=== PATIENT | female | born 1955 | race American Indian/Alaskan Native ===

== ENCOUNTER 2017-06-08 08:36 | Day surgery (SDC) | payer BC, OTHER ==
[2017-06-08] MEDS ORDERED: NACL 0.9% 1000 ML 1,000 ML IV SCH (10:00)
--- NOTE | 2017-06-08 10:59 | Anesthesia Consultation ---
Anesthesia Consult and Med Hx Date of service: 06/08/17 - Airway Anesthetic Teeth Evaluation: Good ROM Head & Neck: Adequate Mental/Hyoid Distance: Adequate Mallampati Class: Class III Intubation Access Assessment: Possibly Difficult - Pre-Operative Health Status ASA Pre-Surgery Classification: ASA3 Proposed Anesthetic Plan: MAC - Pulmonary Hx Smoking: No Hx Asthma: No COPD: No Hx Pneumonia: No - Cardiovascular System Hx Hypertension: Yes Hx Coronary Artery Disease: No (cardiomyopathy EF-40%) Hx Cardia Arrhythmia: Yes (atrial fibrilation) Hx Heart Murmur: Yes Hx Peripheral Vascular Disease: Yes - Central Nervous System Hx Psychiatric Problems: No - Endocrine Hx End Stage Renal Disease: No Hx Non-Insulin Dependent Diabetes: Yes - Other Systems Hx Cancer: No Hx Obesity: Yes (BMI 39.2)
[2017-06-08] MEDS ORDERED: HURRICAINE ONE 20% TOPICAL SPRAY MM NR (11:00)
--- NOTE | 2017-06-08 11:00 | Anesthesia Day of Surgery ---
Anesthesia Day of Surgery - Day of Surgery Patient Examined: Yes Patient H&P Reviewed: Yes Patient is NPO: Yes
[2017-06-08 11:01] LABS: Basophils % (Auto) 0.5 % (0.0-1.8); Eosinophils % (Auto) 3.3 % (0.0-4.3); Hematocrit 36.5 % (30.3-42.9); Mean Corpuscular HGB Conc 33 % (30-34); Mean Corpuscular Hemoglobin 28 pg (28-32); Mean Corpuscular Volume 86 fl (79-97); Platelet Count 183 K/mm3 (140-440); Red Blood Count 4.23 M/mm3 (3.65-5.03); White Blood Count 3.8 K/mm3 (4.5-11.0)
[2017-06-08 11:03] LABS: INR 1.83 (0.87-1.13)
[2017-06-08 11:04] LABS: Partial Thromboplastin Time 35.8 Sec. (24.2-36.6)
[2017-06-08] MEDS ORDERED: VERSED ONE (11:16)
[2017-06-08] MEDS ORDERED: DIPRIVAN 10 MG/ML IV ONE ×2 (11:16)
[2017-06-08 11:37] LABS: Anion Gap 18 mmol/L; BUN/Creatinine Ratio 12.85; Blood Urea Nitrogen 9 mg/dL (7-17); Calcium 9.7 mg/dL (8.4-10.2); Carbon Dioxide 28 mmol/L (22-30); Chloride 101.1 mmol/L (98-107); Glucose 101 mg/dL (65-100); Potassium 3.7 mmol/L (3.6-5.0); Sodium 143 mmol/L (137-145)
--- NOTE | 2017-06-08 12:30 | Short Stay Summary ---
Short Stay Documentation Date of service: 06/08/17 - History H&P: obtained from office - Allergies and Medications Current Medications: Allergies No Known Allergies Allergy (Unverified 09/17/13 14:34) Home Medications Medication Instructions Recorded Confirmed Last Taken Type Atorvastatin (Nf) [Lipitor] 10 mg PO QHS 09/17/13 06/08/17 06/07/17 History Metformin HCl [Glumetza] 1,000 mg PO BID 09/17/13 06/08/17 06/08/17 History Diltiazem Cd [Cardizem Cd] 240 mg PO QDAY #30 cap NS 09/25/13 06/08/17 06/08/17 Rx Furosemide [Lasix] 20 mg PO DAILY #30 tablet 09/25/13 06/08/17 06/08/17 Rx Doxazosin Mesylate [Cardura] 2 mg PO BID 06/08/17 06/08/17 06/08/17 History Rivaroxaban [Xarelto] 10 mg PO DAILY 06/08/17 06/08/17 06/08/17 History Vitamin D3 2,000 unit 2,000 units PO DAILY 06/08/17 06/08/17 06/08/17 History Active Medications Benzocaine (Hurricaine One 20% Topical Herod) 3 spray MM PREOP NR Stop: 06/08/17 15:00 Sodium Chloride (Nacl 0.9% 1000 Ml) 1,000 mls @ 42 mls/hr IV DIRECT YODIT - Physical exam General appearance: no acute distress Integumentary: no rash HEENT: Atraumatic Lungs: Clear to auscultation Breasts: deferred Heart: Regular rate, Other Gastrointestinal: normal Female Genitourinary: deferred Rectal Exam: deferred Extremities: no ischemia Neurological: Normal gait - Brief post op/procedure progress note Date of procedure: 06/08/17 Pre-op diagnosis: Atrial fibrillation Post-op diagnosis: same Procedure: CARLOTA guided CV Anesthesia: MAC Findings: See report Surgeon: ALMAZ NGO Estimated blood loss: none Pathology: none Condition: stable - Hospital course Hospital course: Uneventful - Disposition Condition at discharge: Good Disposition: DC-01 TO HOME OR SELFCARE Short Stay Discharge Plan Activity: advance as tolerated Weight Bearing Status: Partial Weight Bearing Diet: low fat, low cholesterol, low salt Follow up with: FUAD TOVAR MD [Primary Care Provider] - 7 Days
--- NOTE | 2017-06-08 12:31 | Operative Report ---
Operative Report Operative Report: Procedure: Elective cardioversion Indication: Persistent atrial fibrillation, cardiomyopathy Description: After obtaining written consent, patient was deeply sedated with propofol in the presence of anesthesia service. A STERLING thrombus ws excluded by CARLOTA. A 200 J synchronized shock was administered with conversion into sinus rhythm. No complications occurred during the procedure. Impression: Successful cardioversion from atrial fibrillation to normal sinus rhythm Recommendations: Continue current medical regimen and follow-up with Dr Monreal
[2017-06-08 14:12] VITALS: BP 129/97
== END 2017-06-08 14:54 | disposition home or self-care (01) ==
LOC: OPU 08:36
PROVIDERS: ATTEND Internal Medicine
DX: I48.1 Persistent atrial fibrillation (principal); I08.3 Combined rheumatic disorders of mitral, aortic and tricuspid valves; I10 Essential (primary) hypertension; E11.9 Type 2 diabetes mellitus without complications; E66.9 Obesity, unspecified; Z68.39 Body mass index [BMI] 39.0-39.9, adult; Z86.79 Personal history of other diseases of the circulatory system; Z79.899 Other long term (current) drug therapy; Z79.84 Long term (current) use of oral hypoglycemic drugs; Z90.710 Acquired absence of both cervix and uterus; Z98.890 Other specified postprocedural states; Z72.89 Other problems related to lifestyle
CPT/HCPCS: 36415; 80048; 85025; 85610; 85730; 92960; 93005; 93010; 93312; 93320; 93325; J2250; J2704; J7030